=== PATIENT | male | born 1940 | race Caucasian/White ===

== ENCOUNTER 2019-08-31 06:54 | Emergency (ER) | payer MEDICARE ==
[~2019-08-31] VITALS: Ht 180.3 cm; Wt 104.3 kg
[2019-08-31] MEDS ORDERED: FAMOTIDINE 20 MG/2 ML VIAL IV ONE (07:15)
[2019-08-31] MEDS ORDERED: ONDANSETRON HCL INJ 2MG/ML 2ML 2 MG/ML VIAL IV ONE (07:15)
[2019-08-31] MEDS ORDERED: MECLIZINE HCL 12.5 MG TAB PO ONE (07:15)
--- NOTE | 2019-08-31 08:13 | Diagnostic Imaging Report ---
History: Vertigo, dizziness Comparison studies: None Technique: Axial images were obtained from the skull base to the vertex. Coronal and sagittal reconstructions obtained from the axial data. Dose modulation, iterative reconstruction, and/or weight based adjustment of the mA/kV was utilized to reduce the radiation dose to as low as reasonably achievable. Findings: Scalp/skull: No abnormalities. No fractures, blastic or lytic lesions. Extra-axial spaces: No masses. No fluid collections. Brain sulci: Appropriate for age. Ventricles: Normal in size and configuration. No hydrocephalus. Parenchyma: No abnormal densities. No masses, hemorrhage, acute or chronic cortical vascular insults. Sellar/suprasellar region: No abnormalities Craniocervical junction: Patent foramen magnum. No Chiari one malformation. Atherosclerotic calcifications of carotid siphons and vertebral arteries. Nonspecific mild mucosal thickening of the paranasal sinuses. IMPRESSION: No acute abnormalities. Normal intracranial examination for patient's age . Mild nonspecific mucosal inflammatory changes of the paranasal sinuses. Signed by: DR Scar Hopson M.D. on 08/31/2019 8:09 AM
[2019-08-31 08:26] VITALS: BP 139/61
[2019-08-31] MEDS ORDERED: MECLIZINE HCL12.5 MG PO (08:32)
== END 2019-08-31 08:30 | disposition home or self-care (01) ==
LOC: FSED 06:54
DX: H81.11 Benign paroxysmal vertigo, right ear (principal); R11.2 Nausea with vomiting, unspecified
CPT/HCPCS: 70450; 80053; 81003; 82553; 84484; 85025; 93005; 96374; 96376; 99284; J2405; J8597

== ENCOUNTER 2022-04-01 05:55 | Emergency (ER) | payer MEDICARE ==
[~2022-04-01] VITALS: Ht 180.3 cm; Wt 105.7 kg
[~2022-04-01 05:55] MED LIST: MECLIZINE HCL12.5 MG PO
[2022-04-01] MEDS ORDERED: SODIUM CHLORIDE 0.9% 1000ML 1,000 ML IV STA (06:22)
[2022-04-01] MEDS ORDERED: KETOROLAC TROMETHAMINE 30 MG/ML VIAL IV ONE (06:45)
[2022-04-01] MEDS ORDERED: ONDANSETRON HCL INJ 2MG/ML 2ML 2 MG/ML VIAL IV ONE (06:45)
[2022-04-01] MEDS ORDERED: ONDANSETRON HCL INJ 2MG/ML 2ML 2 MG/ML VIAL ONE (07:08)
[2022-04-01] MEDS ORDERED: KETOROLAC TROMETHAMINE 30 MG/ML VIAL ONE (07:08)
[2022-04-01 08:47] VITALS: BP 127/72
[2022-04-01] MEDS ORDERED: NAPROSYN500 MG PO (08:47)
[2022-04-01] MEDS ORDERED: CYCLOBENZAPRINE5 MG PO (08:48)
== END 2022-04-01 08:58 | disposition home or self-care (01) ==
LOC: FSED 06:00
DX: R10.31 Right lower quadrant pain (principal); N20.0 Calculus of kidney; K57.90 Diverticulosis of intestine, part unspecified, without perforation or abscess without bleeding; R31.9 Hematuria, unspecified; I71.40 Abdominal aortic aneurysm, without rupture, unspecified; I10 Essential (primary) hypertension; E78.5 Hyperlipidemia, unspecified
CPT/HCPCS: 74176; 80053; 81003; 85025; 96374; 96376; 99283; J1885; J2405

== ENCOUNTER 2025-01-11 02:47 | Emergency (ER) | payer MEDICARE ==
[~2025-01-11] VITALS: Ht 180.3 cm; Wt 104.3 kg
[~2025-01-11 02:47] MED LIST changes: +CYCLOBENZAPRINE5 MG PO; +MEDROL4 M2 PO; +NAPROSYN500 MG PO
[2025-01-11 02:52] VITALS: PULSE 60; RESP 15; TEMP 98
[2025-01-11] MEDS: ONDANSETRON HCL INJ 2MG/ML 2ML 2 MG/ML VIAL IV STA (04:03)
[2025-01-11] MEDS: KETOROLAC TROMETHAMINE 30 MG/ML VIAL IV STA (04:03)
[2025-01-11 04:33] VITALS: BP 140/65; PULSE 62; RESP 16; TEMP 97.9; O2SAT 97
[2025-01-11] MEDS ORDERED: ULTRAM 50MG50 MG PO (04:37)
== END 2025-01-11 04:33 | disposition home or self-care (01) ==
LOC: FSED 02:56
DX: R10.9 Unspecified abdominal pain (principal); N20.2 Calculus of kidney with calculus of ureter; I71.43 Infrarenal abdominal aortic aneurysm, without rupture; R11.0 Nausea; K57.90 Diverticulosis of intestine, part unspecified, without perforation or abscess without bleeding; N40.0 Benign prostatic hyperplasia without lower urinary tract symptoms; I25.10 Atherosclerotic heart disease of native coronary artery without angina pectoris; I10 Essential (primary) hypertension; G47.30 Sleep apnea, unspecified; Z87.442 Personal history of urinary calculi
CPT/HCPCS: 74176; 80048; 80076; 81003; 85025; 99284; J1885; J2405